=== PATIENT | female | born 1950 | race Caucasian/White ===

== ENCOUNTER 2016-03-02 06:13 | Emergency (ER) | payer OTHER ==
[~2016-03-02] VITALS: Ht 177.8 cm; Wt 147.7 kg
[~2016-03-02 06:13] MED LIST: ASCO100089 PO; ASPI-973 PO; CHOL40003 PO; CINN500C14 PO; CRANBERRY EXTRACT; FERR325T6 PO; FURO40TA4 PO; GABA600T2 PO; HYDR-3740 PO; INSU100C8 SUBQ; LIP40 PO; LORA-303 PO; METF-496 PO; MULT-1018 PO; NPH,100V11 SUBQ; OMEG-38 PO; OMEP20TA24 PO; SPIR25TA PO
[2016-03-02 06:22] VITALS: BP 139/80; PULSE 110; RESP 18; O2SAT 98
--- NOTE | 2016-03-02 06:33 | ED.REPORT ---
HPI-Abd Pain F 40 and Over Date of Service Mar 02, 2016 ED Provider: Diego Prado DO Patient is as 65 year old female with a hx of DM and HTN who reports to the ED with abdominal pain onset 6 hours ago. Pt describes pain as diffuse but constant , sharp, pain along the upper epigastric region with no radiation. Pain is accompanied by nausea but no vomiting. Her symptoms have resolved by time of interview after a BM. She has been experiencing vague, mild, SOB since a surgery in Oct 2015 (4 months ago) (renal cell carcinoma removal). Her SOB is mostly exertional. She has no history of pulmonary disease. Nursing Notes Stated Complaint: ABDOMINAL PAIN/SOB Chief Complaint: Female Abdominal Pain Nursing Notes Reviewed: Yes Allergies: Coded Allergies: lisinopril (Verified Allergy, Intermediate, "cough", 03/02/16) Scheduled ([cranberry extract]) 2 TAB DAILY Ascorbic Acid (Vitamin C) 1,000 Mg Tab.chew 1,000 MG PO DAILY Aspirin (Aspirin) 81 Mg Tablet 81 MG PO DAILY Atorvastatin (Lipitor) 40 Mg Tablet 40 MG PO DAILY Cholecalciferol (Vitamin D3) (Vitamin D3) 4,000 Unit Capsule 4,000 UNIT PO DAILY Cinnamon Bark (Cinnamon) 500 Mg Capsule 1,000 MG PO DAILY Ferrous Sulfate (Ferrous Sulfate) 325 Mg Tablet. 325 MG PO DAILY Furosemide (Furosemide) 40 Mg Tablet 40 MG PO DAILY Furosemide (Furosemide) 40 Mg Tablet 40 MG PO 0830,1630 Gabapentin (Gabapentin) 600 Mg Tablet 600 MG PO BID Insulin Aspart (NovoLOG U100 Insulin Vial) 100 U/Ml U 60 UNIT SUBQ TID Metformin ER (Metformin ER) 1,000 Mg Tablet 1,000 MG PO DAILY Multivitamin (Multi Vitamin Daily) 1 Each Tablet 1 EACH PO DAILY NPH, Human Insulin Isophane (HUMulin-N U100 Insulin Vial) 100 Unit/1 Ml Vial 50 UNIT SUBQ BID [place]-3/Dha/Epa/Fish Oil (Fish Oil 1,000 mg Softgel) 1 Each Capsule 1 EACH PO DAILY Omeprazole Magnesium (Prilosec Otc) 20 Mg Tablet.dr 20 MG PO DAILY Spironolactone (Aldactone) 25 Mg Tablet 25 MG PO DAILY Scheduled PRN Hydrocodone-Acetaminophen 10-325 mg (Hydrocodone-Acetaminophen 10-325 mg) 1 Each Tablet 1-2 TABLET PO Q4H PRN PRN For Pain Lorazepam (Ativan) 1 Mg Tablet 1 MG PO Q4 PRN PRN For Anxiety or Agitation General Time Seen by MD: 06:32 Chief Complaint Abdominal pain Hx Obtained From: Patient Arrived By: Walk-in Sudden in Onset?: Yes Onset Occurred: 5 - 8 hours ago Symptom Duration: Since onset Progression since Onset: Gradually improving Location: : Abdomen upper Radiation: : Does not radiate Severity: Current: No pain currently Recent Healthcare: Previous surgery (october 2015) Past Medical History Past Medical History 1. Type 2 diabetes, insulin-dependent. 2. Morbid obesity. 3. Gout. 4. Hypertension. 5. Hypercholesterolemia. 6. Chronic right foot ulcer. 7. Lower extremity edema. Sepsis (June 2014) Reports: Diabetes mellitus, Hypertension Past Surgical History Reconstruction of right charcot ankle deformity Renal cell carcinom Family History non-contributory Smoking History Never Smoker Social History Alcohol Use: Denies alcohol use Drug Use: Denies drug use Ambulatory Status Independent Review of Systems Respiratory: Reports: Shortness of breath GI: Reports: Abdominal pain, Nausea, Denies: Hematemesis, Hematochezia, Vomiting Female: Denies: Dysuria Complete sys rev & neg: except as marked. Physical Exam Physical Exam Notes: bilateral charcot boots Vital Signs Initial VS: Reviewed, Vital signs abnormal Head / Eyes: Atraumatic, Normocephalic, PERRL ENT: Mucous membranes moist, Conjunctiva normal, No scleral icterus Neck: Supple, Non-tender, Full range of motion Skin: Warm, Dry, No cyanosis Neurologic: Alert, Oriented, Nonfocal Psychiatric: Mood/affect normal, Behavior normal, Normal thought content General/Constitutional: Awake, Alert, No acute distress, Well appearing, Cooperative, Not toxic appearing Respiratory / Chest: Atraumatic, Breath sounds NL, Breath sounds = bilat, No respiratory distress, No rales, No rhonchi, No wheezing, No chest tenderness Cardiovascular: Heart rate NL, Regular rhythm, Heart sounds NL, No gallop, No murmurs, No rubs Abdomen: Atraumatic, Soft, Non-tender, No guarding, No rebound Back: Atraumatic, Inspection NL, Full range of motion, Painless range of motion , Non-tender Re-Eval/Medical Decision Med Decision/Clinical Course 65-year-old female with a complex medical history including recent renal cell cancer, diabetes with bilateral Charcot feet. She had a surgery for her renal cell carcinoma in October and since that time she has felt some mild shortness of breath that effects her more with exertion. I offered a workup for this but At this point she is not interested in a further lung workup because she has an appointment with Dr. Dougherty next month. She mainly came in today due to abdominal pain in the epigastric and left upper quadrant which was quite severe. Since arriving she has had a bowel movement and passed a significant amount of gas and her pain is resolved. She does not want to have a further workup at this time although I offered. She will follow up with Dr. Dougherty. Re-Evaluation/Progress : Time of Eval: 07:50 Re-Evaluation/Progress Note: Pt rechecked. Informed pt of plan for treatment. Pt understands and agrees with plan for treatment. F/U instructions and RTER warnings given. All questions addressed. Counseled Regarding: Diagnosis, Lab results, Need for follow-up, When/why to return to ED Discharge & Departure Primary Impression: Acute abdominal pain Additional Impression: Shortness of breath Disposition: Home Discharge Condition All VS Reviewed: Yes Condition: Stable Patient Instructions: Acute Abdominal Pain (ED) Additional Instructions: I am glad to hear that you are feeling better since arriving at the emergency room. Your pain may have been from gas or stomach inflammation/gastritis. You did not want any further workup so we will have you follow up with your primary doctor, Dr. Dougherty next month as scheduled. Please return if your symptoms return or if you develop new symptoms. Referrals: Gena Dougherty MD (PCP) Erna Attestation Portion of this note were transcribed by Mendez Weber and Jaime Valdez. I, Dr. Prado, personally performed the history, physical exam, and medical decision-making: I reviewed and confirmed the accuracy for the information in the transcribed note. Signed by: erna Guadalupe, 03/02/16 0800 copies to: Gena Dougherty MD, Gary R DO Mar 02, 2016 06:33 JAIME VALDEZ Mar 02, 2016 06:52 MENDEZ WEBER Mar 02, 2016 08:04 Signed by: erna Guadalupe, 03/02/16 0800 copies to: Gena Dougherty MD, Gary R DO Mar 02, 2016 06:33 JAIME VALDEZ Mar 02, 2016 06:52 MENDEZ WEBER Mar 02, 2016 08:04
== END 2016-03-02 07:51 | disposition home or self-care (01) ==
LOC: SED 06:13
DX: R10.13 Epigastric pain (principal); R06.02 Shortness of breath; E11.9 Type 2 diabetes mellitus without complications; I10 Essential (primary) hypertension; Z79.82 Long term (current) use of aspirin; Z79.4 Long term (current) use of insulin; Z79.84 Long term (current) use of oral hypoglycemic drugs